=== PATIENT | female | born 1955 | race Caucasian/White ===

== ENCOUNTER 2017-07-24 03:19 | Observation (INO) ==
[2017-07-24] MEDS ORDERED: *HR* HYDROmorphone (PF) 1 MG/ML SYRINGE IVP PRN ×3 (05:29→09:18)
[2017-07-24] MEDS ORDERED: *HR* Promethazine 25 MG/ML VIAL IM PRN (05:32)
[2017-07-24] MEDS ORDERED: 0.9 % Sodium Chloride 1,000 ML IVC SCH ×2 (05:45→09:18)
--- NOTE | 2017-07-24 06:17 | Urology History & Physical ---
Date of Encounter: 07/24/17 Time of Encounter: 06:15 Assessment and Plan (1) Ureteral stone with hydronephrosis Current Visit: Yes Status: Acute I discussed multiple options with the patient including trial of passage if we can get her pain controlled versus ureteroscopic stone extraction. Patient states she "can't take it anymore "and wishes to proceed with stone extraction. We'll proceed with ureteroscopic stone extraction this morning. We discussed the procedure including potential risks of injury to her urinary tract, stricture, perforation, infection, reaction to dye, inability to extract stone, stent complications. Patient voiced an understanding had no further questions. I do not suspect infection based on urinalysis. White cell count was slightly elevated but this may be reactive. (2) Acute renal insufficiency Current Visit: Yes Status: Acute Should improve with IV fluids and stone extraction History of Present Illness Chief complaint: flank pain HPI: Ms. Calloway is a 61 year old female transferred from [facility] secondary to a 3 mm ureterovesical junction stone on left side. Patient states she's had multiple days of significant pain and nausea vomiting. States she just "couldn' t take it anymore "pain was not adequately controlled in the hospital and she was found to have acute renal insufficiency with a creatinine of 1.5. Transferred to facility with urology coverage. Patient describes no fever. Family history of kidney stones but no personal history of kidney stones. Past Med Surg Social Fam HX - Past Medical History Medical history: GERD, hyperlipidemia Psychiatric history: anxiety, bipolar - Past Surgical History Surgical History: cholecystectomy, hysterectomy, orthopedic, other, splenectomy - Social History Smoking Status: Former smoker Smokeless Tobacco Status: No Alcohol use: none Drug use: none - Family History Mother Living Status: Still Living Hx Family Cancer: Yes (Kidney) Father Living Status: Hx Family Cardiac Disorders: Yes (stroke) Medications and Allergies Cholecalciferol (Vitamin D3) [Vitamin D3] 5,000 unit PO DAILY 07/24/17 [History] Diclofenac Sodium [Voltaren] 50 mg PO BID 07/24/17 [History] DiphenhydraMINE [Benadryl] 25 mg PO HS 07/24/17 [History] Folic Acid 1 mg PO DAILY 07/24/17 [History] Levothyroxine [Synthroid] 75 mcg PO 0630 07/24/17 [History] Methocarbamol [Robaxin-750] 750 mg PO BID PRN 07/24/17 [History] Metoprolol [Lopressor] 12.5 mg PO BID 07/24/17 [History] Ranitidine HCl [Zantac] 300 mg PO DAILY 07/24/17 [History] Vortioxetine Hydrobromide [Trintellix] 10.5 mg PO DAILY 07/24/17 [History] clonazePAM [Klonopin] 0.5 mg PO BID 07/24/17 [History] 3 Allergy/AdvReac Type Severity Reaction Status Date / Time adalimumab Allergy Mild Hives Unverified 07/24/17 05:28 aripiprazole Allergy Hives Verified 07/24/17 05:28 etanercept Allergy Swelling Verified 07/24/17 05:28 of Lip/Tongue/Throat morphine Allergy Hives Verified 07/24/17 05:28 Penicillins Allergy Hives Verified 07/24/17 05:28 sulfamethoxazole Allergy Hives Verified 07/24/17 05:28 trimethoprim Allergy Hives Verified 07/24/17 05:28 Review of Systems - Constitutional no fever(s) - EENT Nose, mouth and throat: no dizziness - Cardiovascular no chest pain - Respiratory no cough - Gastrointestinal abdominal pain, nausea, vomiting - Genitourinary Genitourinary: flank pain - Musculoskeletal back pain - Integumentary no erythema - Neurological no confusion - Psychiatric no anxiety - Hematologic/Lymphatic no easy bleeding - Allergic/Immunologic no throat swelling Exam Initial Vital Signs Temp Pulse Resp BP Pulse Ox 97.7 F 77 15 128/87 96 07/24/17 04:59 07/24/17 04:59 07/24/17 04:59 07/24/17 04:59 07/24/17 04:59 - General physical appearance Present: no distress, moderate pain - Eyes Present: PERRL - ENT Present: normal nares - Neck Present: no masses, trachea midline, no lymphadenopathy - Respiratory Present: normal respiratory effort - Abdomen Abdomen: Present: soft, bowel sounds, suprapubic tenderness. Absent: masses - Integumentary Present: no rash - Neurologic Present: normal coordination. Absent: disoriented, confused - Additional Findings Mild left CVA tenderness Urology Results - Labs All other labs normal.
[2017-07-24] MEDS: Levofloxacin 500 MG/100 ML 500 MG/100 ML BAG IVPB ONE ×2 (06:44→07:57)
[2017-07-24] MEDS ORDERED: Ringers Solution, Lactated 1,000 ML ONE (07:33)
--- NOTE | 2017-07-24 07:35 | Anesthesia Evaluation PreOp ---
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: Other (Anxiety, Bipolar) Other Medical History: Thyroid (Hypothyroid), GERD, Other (RA, Obese) Anesthesia History: Past Anesthesia (GB, PAULA, RCR, Splenectomy) : No Alcohol Use: none Drug use: none Medications and Allergies Cholecalciferol (Vitamin D3) [Vitamin D3] 5,000 unit PO DAILY 07/24/17 [History] Diclofenac Sodium [Voltaren] 50 mg PO BID 07/24/17 [History] DiphenhydraMINE [Benadryl] 25 mg PO HS 07/24/17 [History] Folic Acid 1 mg PO DAILY 07/24/17 [History] Levothyroxine [Synthroid] 75 mcg PO 0630 07/24/17 [History] Methocarbamol [Robaxin-750] 750 mg PO BID PRN 07/24/17 [History] Metoprolol [Lopressor] 12.5 mg PO BID 07/24/17 [History] Ranitidine HCl [Zantac] 300 mg PO DAILY 07/24/17 [History] Vortioxetine Hydrobromide [Trintellix] 10.5 mg PO DAILY 07/24/17 [History] clonazePAM [Klonopin] 0.5 mg PO BID 07/24/17 [History] 3 Allergy/AdvReac Type Severity Reaction Status Date / Time adalimumab Allergy Mild Hives Verified 07/24/17 06:55 aripiprazole Allergy Hives Verified 07/24/17 05:28 etanercept Allergy Swelling Verified 07/24/17 05:28 of Lip/Tongue/Throat morphine Allergy Hives Verified 07/24/17 05:28 Penicillins Allergy Hives Verified 07/24/17 05:28 sulfamethoxazole Allergy Hives Verified 07/24/17 05:28 trimethoprim Allergy Hives Verified 07/24/17 05:28 - Meds/Allergy Pre-op Review Medications Reviewed: Yes Allergies Reviewed: Yes If Beta Blockers taken, Date/Time (Last Dose taken): 2100 07/23/2017 Anesthesia Results - Labs Laboratory Tests 06/06/14 10/01/14 10/01/14 13:50 10:55 10:55 WBC 14.5 H Hgb 13.6 Hct 42.8 INR 1.0 Sodium 139 Potassium 4.3 Chloride 111 H Carbon Dioxide 23 BUN 13 Creatinine 0.88 Anesthesia Exam O2 Sat Height 1.55 m Weight 85.003 kg O2 Sat by Pulse Oximetry 96 Vital Signs Temp Pulse Resp BP Pulse Ox 97.7 F 77 15 128/87 96 07/24/17 04:59 07/24/17 04:59 07/24/17 04:59 07/24/17 04:59 07/24/17 04:59 V - HEENT Pupil (Motor): Pupils equal, EOMI Mallampati: III Teeth: Normal Oral Opening: Greater than 3 - BEEF PLUCK TRIMMER LOC: Oriented BEEF PLUCK TRIMMER Motor: Normal RUE, Normal LUE, Normal RLE, Normal LLE, Normal Face BEEF PLUCK TRIMMER Sensory: Normal: RUE, LUE, RLE, LLE, Face - Cardiac Rhythm: Regular Murmur: None JVD: No Carotid Bruit: No - Pulmonary Breath Sounds: bilateral Clear Respiratory Effort: Symmetrical Anesthesia Assess/Plan ASA Score: 3 Modified [place] Scale for Level of Consciousness: Cooperative, oriented, and tranquil Anesthetic Plan: General Autologous Blood: Yes Monitoring Plan: Standard Monitors Recovery Plan: PACU
[2017-07-24] MEDS ORDERED: *HR* Midazolam HCl 2 MG/2 ML VIAL ONE (07:53)
[2017-07-24] MEDS ORDERED: *HR* FentaNYL (PF) 100 MCG/2 ML VIAL ONE (07:53)
[2017-07-24] MEDS ORDERED: *HR* Propofol 200 MG/20 ML VIAL IVP ONE (07:53)
[2017-07-24] MEDS ORDERED: Ondansetron 4 MG/2 ML VIAL ONE (07:55)
[2017-07-24] MEDS ORDERED: Dexamethasone 4 MG/ML VIAL ONE (07:55)
[2017-07-24] MEDS ORDERED: *HR* Succinylcholine 200 MG/10 ML VIAL IVP ONE (07:55)
[2017-07-24] MEDS ORDERED: Lidocaine -MPF 2% 2 ML VIAL ONE (07:55)
--- NOTE | 2017-07-24 08:02 | Operative Note ---
Date of procedure: 07/24/17 Pre-op diagnosis: left distal ureteral stone Post-op diagnosis: same Procedure: left ureteroscopic stone extraction left retrograde pyelogram left JJ stent Anesthesia: GETA Surgeon: Leo Jha Was there an clinical trial assistant present: No Estimated blood loss (cc): 0 Specimen: stone Condition: stable Disposition: PACU Procedure in Detail: PROCEDURE IN DETAIL: Patient was taken back to the operating room, positioned supine on the operating table. Anesthesia was applied without complication. They were moved into dorsal lithotomy. Careful attention was maintained to cushion all pressure points for patient's safety. They were prepped and draped in sterile fashion. Time-out was performed with the proper patient and procedure. A 21-Italian rigid cystoscope was inserted into the bladder without difficulty. Systematic examination of bladder revealed no abnormalities. The left ureteral orifice was cannulated using a 5-Italian ureteral Catheter and a retrograde pyelogram was performed using Isovue. A filling defect was identified which corresponded to the stone. hydrureter was also see. At that point, a zip wire was placed through the 5-Italian and confirmed in the renal pelvis with fluoroscopy. An 8-10 dilator was then placed over the zip wire to passively dilate the ureteral orifice. A semi-rigid ureteroscope was carefully inserted into the bladder and guided into the ureteral oriface. At that point, the stone was encountered and I did not feel that it required fragmentation for safe extraction. stone was basketed out with a 1.9 tipless basket. All stone in the ureter was removed. A 4.8 x 26 ureteral stent was placed over the zip wire under fluoroscopy without complication. The bladder was drained. stone was sent for stone analysis. The string was left attached to the stent and secured to the patient for easy removal in approximately 72 hours
[2017-07-24] MEDS ORDERED: *HR* Metoprolol 5 MG/5 ML VIAL IVP PRN (08:04)
[2017-07-24] MEDS ORDERED: Ondansetron 4 MG/2 ML VIAL IVP ONE (08:04)
[2017-07-24] MEDS ORDERED: *HR* Promethazine 25 MG/ML VIAL IVP PRN (08:04)
[2017-07-24] MEDS ORDERED: Albuterol 2.5 MG/3 ML NEBULIZER IH ONE (08:04)
--- NOTE | 2017-07-24 08:09 | Discharge Summary ---
Outpatient Proc Discharge Plan - Plan Home Medications: Cholecalciferol (Vitamin D3) [Vitamin D3] 5,000 unit PO DAILY 07/24/17 [History] Diclofenac Sodium [Voltaren] 50 mg PO BID 07/24/17 [History] DiphenhydraMINE [Benadryl] 25 mg PO HS 07/24/17 [History] Folic Acid 1 mg PO DAILY 07/24/17 [History] Levothyroxine [Synthroid] 75 mcg PO 0630 07/24/17 [History] Methocarbamol [Robaxin-750] 750 mg PO BID PRN 07/24/17 [History] Metoprolol [Lopressor] 12.5 mg PO BID 07/24/17 [History] Ranitidine HCl [Zantac] 300 mg PO DAILY 07/24/17 [History] Vortioxetine Hydrobromide [Trintellix] 10.5 mg PO DAILY 07/24/17 [History] clonazePAM [Klonopin] 0.5 mg PO BID 07/24/17 [History]
--- NOTE | 2017-07-24 08:12 | Discharge Summary ---
Date of Encounter: 07/24/17 Time of Encounter: 08:47 - Discharge Diagnosis (1) Ureteral stone with hydronephrosis Priority: Primary Status: Resolved (2) Acute renal insufficiency Priority: Secondary Status: Acute - Discharge Medications Prescriptions: Oxycodone HCl/Acetaminophen [Percocet 5-325 mg Tablet] 1 each PO Q6H PRN #15 tablet PRN Reason: Pain Phenazopyridine [Pyridium] 100 mg PO TID PRN #15 tablet PRN Reason: burning with urination Home Medications: Cholecalciferol (Vitamin D3) [Vitamin D3] 5,000 unit PO DAILY 07/24/17 [History] Diclofenac Sodium [Voltaren] 50 mg PO BID 07/24/17 [History] DiphenhydraMINE [Benadryl] 25 mg PO HS 07/24/17 [History] Folic Acid 1 mg PO DAILY 07/24/17 [History] Levothyroxine [Synthroid] 75 mcg PO 0630 07/24/17 [History] Methocarbamol [Robaxin-750] 750 mg PO BID PRN 07/24/17 [History] Metoprolol [Lopressor] 12.5 mg PO BID 07/24/17 [History] Oxycodone HCl/Acetaminophen [Percocet 5-325 mg Tablet] 1 each PO Q6H PRN #15 tablet 07/24/17 [Rx] Phenazopyridine [Pyridium] 100 mg PO TID PRN #15 tablet 07/24/17 [Rx] Ranitidine HCl [Zantac] 300 mg PO DAILY 07/24/17 [History] Vortioxetine Hydrobromide [Trintellix] 10.5 mg PO DAILY 07/24/17 [History] clonazePAM [Klonopin] 0.5 mg PO BID 07/24/17 [History] Allergies/Adverse Reactions: 3 Allergy/AdvReac Type Severity Reaction Status Date / Time adalimumab Allergy Mild Hives Verified 07/24/17 06:55 aripiprazole Allergy Hives Verified 07/24/17 05:28 etanercept Allergy Swelling Verified 07/24/17 05:28 of Lip/Tongue/Throat morphine Allergy Hives Verified 07/24/17 05:28 Penicillins Allergy Hives Verified 07/24/17 05:28 sulfamethoxazole Allergy Hives Verified 07/24/17 05:28 trimethoprim Allergy Hives Verified 07/24/17 05:28 Date of admission: 07/24/17 04:36 Primary care physician: PCP NONE Consults: 07/24/17 05:54 Consult to Nutrition [CONS] Routine Comment: Consulting Provider: NUTRITION Reason for Dietary Consult: MST Score 07/24/17 06:13 Consult to Nutrition [CONS] Routine Comment: Consulting Provider: NUTRITION Reason for Dietary Consult: MST Score Discharging clinician: Leo Jha Anticipated date of discharge: 07/24/17 - Patient Status Disposition: Home, Self-Care Condition: Good Functional capacity at discharge: independent ambulation Overall status at discharge: patient is progressing back to baseline - Discharge Instructions Follow Up With: NONE,PCP [Primary Care Provider] - Leo Jha MD [Partnered Physician] - (see instructions) Additional Instructions: expect stent discomfort including urgency, frequency, burning, blood in the urine. call if symptoms are severe or fever >101 OK to remove stent at home on Tuesday by pulling on the string. if unable to remove stent at home, please some to the urology office tuesday for removal it is normal to have increased flank pain for 24 hours after the stent is removed. avoid NSAIDS is possible stay hydrated. if stent is removed at home follow in 2-4 weeks. - Diet and Activity Activity: other Diet: advance to your usual diet - Hospital Course Hospital course: Ms. Calloway is a 61 year old female transferred to [place] for management of a distal ureteral stone. successful stone extraction. plan for discharge when pain is controlled - Time Spent with Patient Total time spent providing and/or coordinating discharge services: Less than 30 minutes Exam Initial Vital Signs Temp Pulse Resp BP Pulse Ox 97.7 F 77 15 128/87 96 07/24/17 04:59 07/24/17 04:59 07/24/17 04:59 07/24/17 04:59 07/24/17 04:59 - General physical appearance Present: well developed, no distress
[2017-07-24] MEDS ORDERED: EPHEDrine 50 MG/ML VIAL ONE (08:16)
[2017-07-24] MEDS ORDERED: Famotidine 20 MG TABLET PO SCH (09:18)
[2017-07-24] MEDS ORDERED: *HR* OxyCODONE/APAP 5/325 TABLET PO PRN (09:18)
[2017-07-24] MEDS ORDERED: clonazePAM 0.5 MG TABLET PO SCH (09:18)
[2017-07-24] MEDS ORDERED: *HR* Belladonna Alkaloids/Opium 30 MG RECTAL SUPPOSITORY RC PRN (09:18)
[2017-07-24] MEDS ORDERED: Methocarbamol 750 MG TABLET PO PRN (09:18)
[2017-07-24] MEDS ORDERED: Folic Acid 1 MG TABLET PO SCH (09:18)
[2017-07-24] MEDS ORDERED: *HR* Promethazine 25 MG/ML VIAL IV PRN (09:18)
[2017-07-24 12:28] VITALS: BP 110/72
== END 2017-07-24 12:41 | disposition home or self-care (01) ==
LOC: 3ANU
PROVIDERS: ADMIT Urology; ATTEND Urology

== ENCOUNTER 2018-04-03 01:36 | Observation (INO) ==
[2018-04-03] MEDS ORDERED: Ketorolac 15 MG/ML VIAL IVP ONE (02:08)
[2018-04-03] MEDS ORDERED: Ondansetron ODT 4 MG TAB.RAPDIS SL ONE (02:08)
[2018-04-03] MEDS ORDERED: *HR* FentaNYL (PF) 100 MCG/2 ML VIAL IVP ONE (02:08)
[2018-04-03] MEDS ORDERED: Ondansetron 4 MG/2 ML VIAL IVP ONE (02:08)
--- NOTE | 2018-04-03 02:11 | Emergency Department Note ---
Disposition Clinical Impression: Left flank pain, Ureteral stone with hydronephrosis Disposition: Admitted As Inpatient Condition: Good Time of Disposition: 06:12 Abdominal Pain HPI - General Chief Complaint: ED Urogenital-Female Stated Complaint: Kidney Stones Time Seen by Provider: 04/03/18 01:41 Source: patient Nursing Notes Reviewed: Yes Vital Signs Reviewed: Yes - History of Present Illness HPI Narrative: 62-year-old female with known history of previous kidney stones presents with left flank pain. She describes it radiating to her left lower quadrant. Symptoms started since Tuesday. Accompanied with nausea and vomiting. She also mentions she had a fever 101 at home. She did take 2 of these prior to arrival states have not helped. She mentions that she has seen blood in her urine. She mentioned she saw Dr. Jha last month. She feels that her symptoms are similar to her previous attacks for kidney stones. She mentioned she is also had a few episodes of diarrhea the past 2 days. She denies any chest pain, shortness of breath, bloody stools. Pain Scale: 10 - Related Data Home Medications Medication Instructions Recorded Confirmed Cholecalciferol (Vitamin D3) 5,000 unit PO DAILY 07/24/17 07/24/17 [Vitamin D3] Diclofenac Sodium [Voltaren] 50 mg PO BID 07/24/17 07/24/17 DiphenhydraMINE [Benadryl] 25 mg PO HS 07/24/17 07/24/17 Folic Acid 1 mg PO DAILY 07/24/17 07/24/17 Levothyroxine [Synthroid] 75 mcg PO 0630 07/24/17 07/24/17 Methocarbamol [Robaxin-750] 750 mg PO BID PRN 07/24/17 07/24/17 Metoprolol [Lopressor] 12.5 mg PO BID 07/24/17 07/24/17 Ranitidine HCl [Zantac] 300 mg PO DAILY 07/24/17 07/24/17 Vortioxetine Hydrobromide 10.5 mg PO DAILY 07/24/17 07/24/17 [Trintellix] clonazePAM [Klonopin] 0.5 mg PO BID 07/24/17 07/24/17 Previous Rx's Medication Instructions Recorded Oxycodone HCl/Acetaminophen 1 each PO Q6H PRN #15 tablet 12/31/17 [Percocet 5-325 mg Tablet] Phenazopyridine [Pyridium] 100 mg PO TID PRN #15 tablet 07/24/17 Allergies Allergy/AdvReac Type Severity Reaction Status Date / Time adalimumab Allergy Mild Hives Verified 07/24/17 06:55 aripiprazole Allergy Hives Verified 07/24/17 05:28 etanercept Allergy Swelling Verified 07/24/17 05:28 of Lip/Tongue/Throat morphine Allergy Hives Verified 07/24/17 05:28 Penicillins Allergy Hives Verified 07/24/17 05:28 sulfamethoxazole Allergy Hives Verified 07/24/17 05:28 trimethoprim Allergy Hives Verified 07/24/17 05:28 All systems ED: reviewed and negative except as stated. Review of Systems: As Per HPI Constitutional: Reports: fever. Denies: chills Eyes: Denies: vision change ENT ED: Denies: throat pain Cardiovascular: Denies: chest pain, palpitations Respiratory: Denies: dyspnea Gastrointestinal: Reports: as per HPI, abdominal pain, nausea, vomiting, diarrhea Genitourinary: Reports: hematuria. Denies: dysuria, frequency, discharge, abnormal menses Musculoskeletal: Reports: as per HPI Integumentary: Denies: rash Neurological: Denies: headache Endocrine: Denies: fatigue Hematological/Lymphatic: Denies: easy bleeding Allergic/Immunologic: Denies: facial swelling Abdominal Pain PMH - Past Medical History Medical history: Reports: arthritis, GERD, hyperlipidemia, kidney stones, liver disease Female Surgical History: Reports: cholecystectomy, hysterectomy, orthopedic, other, Tonsillectomy Psychiatric history: Reports: anxiety, bipolar - Social History Smoking status: Former smoker Alcohol use: Reports: none Drug use: Reports: none Physical Exam - General Limitations: no limitations General appearance: alert, in no apparent distress - Head Head exam: normocephalic - Eye Eye exam: Present: EOMI - ENT ENT exam: normal oropharynx, mucous membranes moist - Neck Neck exam: Present: full ROM - Chest Chest inspection: Present: symmetric chest wall rise - Respiratory Respiratory exam: Present: normal lung sounds bilaterally, respiratory distress - Cardiovascular Cardiovascular exam: Present: regular rate - Abdominal Exam Abdominal exam: Present: soft, tenderness Abdominal tenderness: Present: LLQ - Extremities Exam Extremities exam: Present: normal inspection, full ROM, normal capillary refill - Back Exam Back exam: Present: full ROM - Neurological Exam Neurological exam: Present: alert - Psychiatric Psychiatric exam: Present: normal affect, normal mood - Skin Skin exam: Present: warm, dry, intact, normal color. Absent: rash, cyanosis, diaphoresis Course Course Narrative: 62-year-old female with known history of previous kidney stones presents with left flank pain. She describes it radiating to her left lower quadrant. Symptoms started since Max. Accompanied with nausea and vomiting. She also mentions she had a fever 101 at home. She did take 2 of these prior to arrival states have not helped. She mentions that she has seen blood in her urine. She mentioned she saw Dr. Jha last month. She feels that her symptoms are similar to her previous attacks for kidney stones. She mentioned she is also had a few episodes of diarrhea the past 2 days. She denies any chest pain, shortness of breath, bloody stools. Considering pyelonephritis, renal colic, diverticulitis. Analgesics workup initiated. - Reevaluation(s) Reevaluation #1: obstructing 6 x 4 mm calculus in the distal left ureter just proximal to the UVJ with moderate hydronephrosis; no concern for diverticulitis. WBC elevated 16 urinalysis shows no evidence urinary tract infection. Vitals remain stable. Patient feels analgesics are not working at this point. She has had previous episodes, with stent placement approximately one year ago. We will contact hospitalist for admission and attempt to control patient's pain. Time: 04:24 Reevaluation #2: Pt discussed with and accepted by Dr. Pang. I'll plan urology page and consult order. Time: 05:21 - Consultations Consultation #1: Patient was discussed with on-call urologist Dr. Jha, who agreed to see patient. Time: 06:11 Vital Signs Temperature 98.2 F 04/03/18 01:39 Pulse Rate 89 04/03/18 01:39 Respiratory Rate 18 04/03/18 01:39 Blood Pressure 160/122 04/03/18 01:39 O2 Sat by Pulse Oximetry 97 04/03/18 01:39 Temperature 98.2 F 04/03/18 01:39 Pulse Rate 83 04/03/18 05:41 Respiratory Rate 18 04/03/18 05:41 Blood Pressure 106/66 04/03/18 05:41 O2 Sat by Pulse Oximetry 99 04/03/18 05:41 Oxygen Delivery Oxygen Delivery Room Air Abdominal Pain - MDM Narrative Medical decision making narrative: Abdomen/Pelvis CT 04/03/18 02:49 IMPRESSION: Moderate left hydroureteronephrosis as result of an obstructing 6 x 4 mm calculus in the distal left ureter just proximal to the UVJ. Additional left nephrolithiasis. D/ / Khris Holt MD / Khris Holt MD Interpreting Provider: Khris Holt MD - Lab Data Lab results reviewed: Yes I reviewed the patient's lab results. Result diagrams: 04/03/18 02:21 04/03/18 02:21 Lab Results 04/03/18 04/03/18 04/03/18 Range/Units 02:03 02:21 02:21 WBC 16.7 H (4.3-11.1) K/mcL RBC 4.64 (3.82-4.97) M/mcL Hgb 14.5 (11.5-15.4) g/dL Hct 43.9 (35.3-44.9) % MCV 94.6 (83.0-100.0) fL MCH 31.3 (28.0-33.3) pg MCHC 33.0 (31.6-35.5) g/dL RDW 14.6 H (11.5-14.5) % Plt Count 359 (140-400) K/mcL MPV 11.7 (9.4-12.4) fL Immature Gran % 0.3 (0-4) % Seg Neutrophils % 75.6 % Lymphocytes % 13.2 % Monocytes % 9.6 % Eosinophils % 0.8 % Basophils % 0.5 % Neutrophils # 12.6 H (1.6-8.9) K/mcL Lymphocytes # 2.2 (0.6-4.6) K/mcL Monocytes # 1.6 H (0.0-1.3) K/mcL Eosinophils # 0.1 (0.0-0.6) K/mcL Basophils # 0.1 (0.0-0.2) K/mcL Sodium 140 (136-145) mEq/L Potassium 4.2 (3.5-5.1) mEq/L Chloride 106 (98-107) mEq/L Carbon Dioxide 27 (23-29) mEq/L BUN 15 (8-23) mg/dL Creatinine 1.24 H (0.60-1.20) mg/dL Est GFR ( Amer) 53 L (> 60) Est GFR (Non-Af Amer) 44 L (> 60) BUN/Creatinine Ratio 12 (6-26) Glucose 130 H (70-105) mg/dL Calculated Osmolality 293 (280-300) Calcium 10.8 H (8.6-10.3) mg/dL Urine Color Dark Yellow (Yellow) Urine Clarity Cloudy A (Clear) Urine pH 6.0 (5.0-8.0) pH Units Ur Specific [place] 1.018 (1.010-1.025) Urine Protein 30 H (Neg-Trace) mg/dL Urine Glucose (UA) Normal (Normal) mg/dL Urine Ketones Trace H (Negative) mg/dL Urine Blood Large H (Negative) Urine Nitrite Negative (Negative) Urine Bilirubin Negative (Negative) Urine Urobilinogen Normal (Normal) mg/dL Ur Leukocyte Esterase Small H (Negative) Urine Microscopic RBC 30-50 H (0-3) per hpf Urine Microscopic WBC 5-15 H (0-3) per hpf Ur Squamous Epith Cells Many H (None-Few) per lpf Calcium Oxalate Crystal Present Urine Bacteria None Seen (None-Few) per hpf Hyaline Casts None Seen (None-Few) per lpf Ur Culture Indicated? NO. A (NO) - Radiology Data Radiology results reviewed: Yes I reviewed the patient's radiology results. Attestation Statement - Attestation Attestation: For this encounter, I have reviewed the ECONOMIC HISTORIAN or PA documentation, treatment plan, and medical decision making; and I have had face to face time with this patient. Findings consistent with obstructive uropathy. We will admit for urology consultation further management. Patient is having significant pain and will be requiring admission for pain control.
[2018-04-03 02:14] LABS: Bilirubin,Urine Negative (Negative); Blood,Urine Large (Negative); Clarity,Urine Cloudy (Clear); Color,Urine Dark Yellow (Yellow); Glucose,Urine (UA) Normal (Normal); Ketones,Urine Trace mg/dL (Negative); Leukocyte Esterase,Urine Small (Negative); Nitrite,Urine Negative (Negative); Protein,Urine 30 mg/dL (Neg-Trace); Specific Gravity,Urine 1.018 (1.010-1.025); Urobilinogen,Urine Normal (Normal)
[2018-04-03 02:17] LABS: Bacteria,Urine None Seen per hpf (None-Few); Hyaline Casts,Urine None Seen per lpf (None-Few); Squamous Epithelial Cell,Urine Many per lpf (None-Few)
[2018-04-03 02:26] LABS: Calcium Oxalate Crystals,Urine Present; RBC,Urine 30-50 per hpf (0-3)
[2018-04-03 02:30] LABS: Basophils # 0.1 K/mcL (0.0-0.2); Basophils % 0.5 %; Eosinophils # 0.1 K/mcL (0.0-0.6); Eosinophils % 0.8 %; Hematocrit 43.9 % (35.3-44.9); Hemoglobin 14.5 g/dL (11.5-15.4); Immature Granulocytes % 0.3 % (0-4); Lymphocytes # 2.2 K/mcL (0.6-4.6); Lymphocytes % 13.2 %; Mean Corpuscular Hemoglobin 31.3 pg (28.0-33.3); Mean Corpuscular Volume 94.6 fL (83.0-100.0); Mean Platelet Volume 11.7 fL (9.4-12.4); Monocytes # 1.6 K/mcL (0.0-1.3); Monocytes % 9.6 %; Neutrophils # 12.6 K/mcL (1.6-8.9); Platelet Count 359 K/mcL (140-400); Red Blood Count 4.64 M/mcL (3.82-4.97); Red Cell Distribution Width 14.6 % (11.5-14.5); Segmented Neutrophils % 75.6 %
[2018-04-03 02:55] LABS: Calcium 10.8 mg/dL (8.6-10.3); Potassium 4.2 mEq/L (3.5-5.1)
[2018-04-03] MEDS ORDERED: OXYCODONE Oral CONC 10 MG/0.5 ML ORAL.SYG SL ONE (04:16)
[2018-04-03] MEDS ORDERED: Hyoscyamine 0.5 MG/ML MLS IVP ONE (04:59)
[2018-04-03] MEDS ORDERED: 0.9 % Sodium Chloride 1,000 ML IVC ONE (05:05)
[2018-04-03] MEDS ORDERED: Naloxone 0.4 MG/ML INJ IVP PRN ×2 (08:00→11:05)
[2018-04-03] MEDS ORDERED: Ondansetron 4 MG/2 ML VIAL IVP PRN ×2 (08:02→11:05)
[2018-04-03] MEDS ORDERED: OXYCODONE Oral CONC 10 MG/0.5 ML ORAL.SYG SL PRN (08:03)
[2018-04-03] MEDS ORDERED: 0.9 % Sodium Chloride 1,000 ML IVC SCH (08:15)
--- NOTE | 2018-04-03 08:34 | Anesthesia Evaluation PreOp ---
Date of Encounter: 04/03/18 Time of Encounter: 08:56 - Past History Planned Operation: LEFT USE Cardiac History: Hyperlipidemia Pulmonary History: Former smoker [employer] History: Other (ANXIETY, BIPOLAR) Other Medical History: Renal (ARF, ?CRF, RECURRENT RENAL STONES, OBSTRUCTING URETERIC STONE WITH SEPSIS), GERD, Other (ARTHRITIS) Anesthesia History: No Prior Anesthetic Complications, Past Anesthesia ( cholecystectomy, hysterectomy, orthopedic, Tonsillectomy) Alcohol Use: none Drug use: none Medications and Allergies Cholecalciferol (Vitamin D3) [Vitamin D3] 5,000 unit PO DAILY 07/24/17 [History] Diclofenac Sodium [Voltaren] 50 mg PO BID 07/24/17 [History] DiphenhydraMINE [Benadryl] 25 mg PO HS 07/24/17 [History] Folic Acid 1 mg PO DAILY 07/24/17 [History] Levothyroxine [Synthroid] 75 mcg PO 0630 07/24/17 [History] Methocarbamol [Robaxin-750] 750 mg PO BID PRN 07/24/17 [History] Metoprolol [Lopressor] 12.5 mg PO BID 07/24/17 [History] Oxycodone HCl/Acetaminophen [Percocet 5-325 mg Tablet] 1 each PO Q6H PRN #15 tablet 07/24/17 [Rx] Phenazopyridine [Pyridium] 100 mg PO TID PRN #15 tablet 07/24/17 [Rx] Ranitidine HCl [Zantac] 300 mg PO DAILY 07/24/17 [History] Vortioxetine Hydrobromide [Trintellix] 10.5 mg PO DAILY 07/24/17 [History] clonazePAM [Klonopin] 0.5 mg PO BID 07/24/17 [History] 3 Allergy/AdvReac Type Severity Reaction Status Date / Time adalimumab Allergy Mild Hives Verified 07/24/17 06:55 aripiprazole Allergy Hives Verified 07/24/17 05:28 etanercept Allergy Swelling Verified 07/24/17 05:28 of Lip/Tongue/Throat morphine Allergy Hives Verified 07/24/17 05:28 Penicillins Allergy Hives Verified 07/24/17 05:28 sulfamethoxazole Allergy Hives Verified 07/24/17 05:28 trimethoprim Allergy Hives Verified 07/24/17 05:28 - Meds/Allergy Pre-op Review Medications Reviewed: Yes Allergies Reviewed: Yes Beta Blockers on Current Med List: Yes If Beta Blockers taken, Date/Time (Last Dose taken): 2200, BUT VOMITED Anesthesia Results - Labs 04/03/18 02:21 04/03/18 02:21 Anesthesia Exam Vital Signs/O2 Sat, Most Current Temp Pulse Resp BP Pulse Ox 98.0 F 99 16 135/83 93 04/03/18 06:41 04/03/18 06:41 04/03/18 06:41 04/03/18 06:41 04/03/18 06:41 HEIGHT 1.57 m WEIGHT 88 kg BMI 36 NPO (# of Hours): 8 - HEENT Mallampati: III Teeth: Normal (LOOSE #11) Oral Opening: Greater than 3 - Cardiac Rhythm: Regular - Pulmonary Breath Sounds: bilateral Clear Respiratory Effort: Symmetrical - Additional Findings Active Medications Sodium Chloride (0.9 % Sodium Chloride) 1,000 mls @ 100 mls/hr IVC .Q10H RAUL Stop: 10/03/18 08:16 Naloxone HCl (Narcan) 0.4 mg IVP Q2MIN PRN PRN Reason: SEE COMMENTS Stop: 10/03/18 08:01 Ondansetron HCl (Zofran) 4 mg IVP Q6HR PRN; Protocol PRN Reason: Nausea And Vomiting Stop: 10/03/18 08:03 Oxycodone HCl (Oxycodone Oral Conc) 10 mg SL Q6HR PRN; Protocol PRN Reason: Severe Pain Stop: 10/03/18 08:04 Anesthesia Assess/Plan ASA Score: 3, E Modified Bethel Scale for Level of Consciousness: Cooperative, oriented, and tranquil Anesthetic Plan: General Monitoring Plan: Standard Monitors Recovery Plan: PACU Anes Supervising Prov Stmt: [employer] MED LIST NOT UPDATED THIS VISIT PATIENT'S CHART AND CURRENT MEDICATIONS REVIEWED
[2018-04-03] MEDS ORDERED: *HR* Propofol 200 MG/20 ML VIAL IVP ONE (08:44)
[2018-04-03] MEDS ORDERED: *HR* FentaNYL (PF) 100 MCG/2 ML VIAL ONE (08:44)
[2018-04-03] MEDS ORDERED: Dexamethasone 4 MG/ML VIAL ONE (08:44)
[2018-04-03] MEDS ORDERED: *HR* Midazolam HCl 2 MG/2 ML VIAL ONE (08:44)
[2018-04-03] MEDS ORDERED: Lidocaine -MPF 2% 2 ML VIAL ONE (08:44)
[2018-04-03] MEDS ORDERED: Ondansetron 4 MG/2 ML VIAL ONE (08:44)
[2018-04-03] MEDS ORDERED: Isovue-300 50 ML VIAL IVP ONE (08:45)
[2018-04-03] MEDS ORDERED: *HR* FentaNYL (PF) 100 MCG/2 ML VIAL IVP PRN (08:50)
[2018-04-03] MEDS ORDERED: *HR* OxyCODONE Immed Rel 5 MG TABLET PO PRN (08:50)
--- NOTE | 2018-04-03 08:52 | Internal Med History&Physical ---
Date of Encounter: 04/03/18 Time of Encounter: 08:47 Internal Medicine - H&P: HPI Chief complaint: L flank pain Admitted From: Home Plans for Post Hospital Care: Home History of present illness: Ms. Calloway is a 62 year old female with PMH of HTN and renal stone who presented with 3 days hx of L flank pain accompanied by hematuria, diarrhea and nausea and vomiting. She also complained of fever and chills, said to have been as high as 101 at home. She reports diarrhea has now resolved but flank pain persists. She had a similar experience in 06/2017 with stone extraction done Urology has been consulted by ER team. ROS is not contributory Work up also showed BRANDON She is full code Past Med Surg Social Fam HX - Past Medical History Medical history: arthritis, cancer, GERD, hyperlipidemia, kidney stones, liver disease, other Additional medical history: [place] of hearing Psychiatric history: anxiety - Past Surgical History Surgical History: cholecystectomy, hysterectomy, splenectomy, thyroidectomy Additional surgical history: Spleenectomy, thyroidectomy - Social History Smoking Status: Former smoker Smokeless Tobacco Status: No Alcohol use: none Drug use: none - Family History Mother Living Status: Still Living Hx Family Cancer: Yes (Kidney) Hx Family GI Disorders: Yes (colon problems) Hx Family Genitourinary Disorders: Yes (cancer) Hx Family Psychosocial Disorders: Yes (anxiety) Father Living Status: Age at : 67 Hx Family Cardiac Disorders: Yes (stroke) Hx Family Musculoskeletal Disorders: Yes Hx Family Psychosocial Disorders: Yes (anxiety) Sister Living Status: Still Living Hx Family Psychosocial Disorders: Yes (schizo , depression) Internal Medicine - H&P: Meds Cholecalciferol (Vitamin D3) [Vitamin D3] 5,000 unit PO DAILY 07/24/17 [History] Diclofenac Sodium [Voltaren] 50 mg PO BID 07/24/17 [History] DiphenhydraMINE [Benadryl] 25 mg PO HS 07/24/17 [History] Folic Acid 1 mg PO DAILY 07/24/17 [History] Levothyroxine [Synthroid] 75 mcg PO 0630 07/24/17 [History] Methocarbamol [Robaxin-750] 750 mg PO BID PRN 07/24/17 [History] Metoprolol [Lopressor] 12.5 mg PO BID 07/24/17 [History] Oxycodone HCl/Acetaminophen [Percocet 5-325 mg Tablet] 1 each PO Q6H PRN #15 tablet 07/24/17 [Rx] Phenazopyridine [Pyridium] 100 mg PO TID PRN #15 tablet 07/24/17 [Rx] Ranitidine HCl [Zantac] 300 mg PO DAILY 07/24/17 [History] Vortioxetine Hydrobromide [Trintellix] 10.5 mg PO DAILY 07/24/17 [History] clonazePAM [Klonopin] 0.5 mg PO BID 07/24/17 [History] 3 Allergy/AdvReac Type Severity Reaction Status Date / Time adalimumab Allergy Mild Hives Verified 07/24/17 06:55 aripiprazole Allergy Hives Verified 07/24/17 05:28 etanercept Allergy Swelling Verified 07/24/17 05:28 of Lip/Tongue/Throat morphine Allergy Hives Verified 07/24/17 05:28 Penicillins Allergy Hives Verified 07/24/17 05:28 sulfamethoxazole Allergy Hives Verified 07/24/17 05:28 trimethoprim Allergy Hives Verified 07/24/17 05:28 All Systems PM: A 10-system review of systems was performed and is negative for pertinent findings except as documented above in the HPI. - Constitutional Constitutional: no chills, no fever(s), no night sweats - EENT Eyes: no change in vision, no discharge, no pain, no photophobia Ears: no ear discharge, no ear pain, no tinnitus Nose, mouth and throat: no dysphagia, no nasal discharge, no neck pain, no sore throat - Cardiovascular Cardiovascular ROS IM: no chest pain, no diaphoresis, no dyspnea, no lightheadedness, no palpitations, no syncope - Respiratory Respiratory: no cough, no dyspnea, no wheezing, no excessive phlegm production - Gastrointestinal Gastrointestinal: no abdominal pain, no diarrhea, no hematemesis, no hematochezia, no melena, no nausea, no vomiting - Genitourinary Genitourinary: as per HPI, change in urinary stream, flank pain, no dysuria, no hematuria - Musculoskeletal Musculoskeletal ROS IM: no numbness, no tingling - Integumentary Integumentary IM: no rash, no unusual bruising - Neurological Neurological ROS: no confusion, no convulsions, no focal weakness, no numbness, no tingling, no tremor(s) - Hematologic/Lymphatic Hematologic/Lymphatic: no easy bruising - Constitutional Vitals: Temp Pulse Resp BP Pulse Ox 98.0 F 99 16 135/83 93 04/03/18 06:41 04/03/18 06:41 04/03/18 06:41 04/03/18 06:41 04/03/18 06:41 General appearance: Present: A&O X 3, pleasant, obese Exam: see exam details below - Head Head exam: Present: atraumatic, normocephalic - Eye Eye exam: Present: PERRL, conjuntiva pink, sclera anicteric Pupils: Present: PERRL - Neck Neck exam general surgery: Present: supple, trachea midline. Absent: lymphadenopathy - Respiratory Respiratory exam: Present: CTAB. Absent: accessory muscle use, rales, rhonchi, wheezes - Cardiovascular Cardiovascular exam: Present: RRR, +S1, +S2. Absent: diastolic murmur, gallop, rubs, systolic murmur - GI/Abdominal GI/Abdominal exam: Present: normal bowel sounds, soft, no peritoneal signs. Absent: distended, tenderness - Extremities Exam Extremities exam: Present: warm, radial pulses palpable and symmetrical. Absent : calf tenderness, cyanotic, pedal edema - Neurological Exam Neurological exam: Present: CN II-XII intact, oriented X3, no focal deficits. Absent: pronater drift, facial droop, speech deficit - Skin Skin exam: Present: dry, intact Internal Med - H&P Results - Labs CBC & Chem 7: 04/03/18 02:21 04/03/18 02:21 - Assessment and plan (1) Ureteral stone with hydronephrosis Current Visit: Yes Status: Acute Assessment and plan: Urology has been consulted for intervention Continue analgesia, IVF and antiemetics (2) Acute renal insufficiency Current Visit: Yes Status: Acute Assessment and plan: IVF hydration, rpt Chem a.m (3) UTI (urinary tract infection) Current Visit: Yes Status: Suspected Assessment and plan: Send urine culture and start on ceftriaxone 1g daily, de-escalate with negative cultures, patient reported a hx of fever at home and has a dirty urine as well as leukocytosis Qualifiers: Urinary tract infection type: acute cystitis Hematuria presence: with hematuria Qualified Code(s): N30.01 - Acute cystitis with hematuria - Time Spent With Patient Total time spent is greater than 50% in coordination of care (as documented) at patient's floor/unit and/or counseling patient:
[2018-04-03] MEDS ORDERED: Ringers Solution, Lactated 1,000 ML IVC SCH (09:00)
[2018-04-03] MEDS ORDERED: Levofloxacin 750 MG/150 ML 750 MG/150 ML BAG IVPB SCH (09:00)
--- NOTE | 2018-04-03 09:00 | Urology - Consult Note ---
Date of Encounter: 04/03/18 Time of Encounter: 08:59 - Assessment and Plan (1) Ureteral stone with hydronephrosis Current Visit: Yes Status: Acute Assessment and plan: Patient was taken to the operating room today for left ureteroscopic stone extraction. Informed consent obtained and placed in the chart. Urology CN:HPI Consult date: 04/03/18 Reason for consult Urology: Hydronephrosis Requesting physician: David Crowe History of present illness: Margarita is a 62-year-old female who presented to emergency Department yesterday secondary to severe left-sided flank pain. She was found to have a 4-5 mm distal left ureteral stone with some proximal hydronephrosis. Patient was brought in for observation. Patient also with a slightly elevated WBC count. Positive fevers at home without fever since arriving to the hospital. Past Med Surg Social Fam HX - Past Medical History Medical history: arthritis, cancer, GERD, hyperlipidemia, kidney stones, liver disease, other Additional medical history: [place] of hearing Psychiatric history: anxiety - Past Surgical History Surgical History: cholecystectomy, hysterectomy, splenectomy, thyroidectomy Additional surgical history: Spleenectomy, thyroidectomy - Social History Smoking Status: Former smoker Smokeless Tobacco Status: No Alcohol use: none Drug use: none - Family History Mother Living Status: Still Living Hx Family Cancer: Yes (Kidney) Hx Family GI Disorders: Yes (colon problems) Hx Family Genitourinary Disorders: Yes (cancer) Hx Family Psychosocial Disorders: Yes (anxiety) Father Living Status: Age at : 67 Hx Family Cardiac Disorders: Yes (stroke) Hx Family Musculoskeletal Disorders: Yes Hx Family Psychosocial Disorders: Yes (anxiety) Sister Living Status: Still Living Hx Family Psychosocial Disorders: Yes (schizo , depression) Medications and Allergies Cholecalciferol (Vitamin D3) [Vitamin D3] 5,000 unit PO DAILY 07/24/17 [History] Diclofenac Sodium [Voltaren] 50 mg PO BID 07/24/17 [History] DiphenhydraMINE [Benadryl] 25 mg PO HS 07/24/17 [History] Folic Acid 1 mg PO DAILY 07/24/17 [History] Levothyroxine [Synthroid] 75 mcg PO 0630 07/24/17 [History] Methocarbamol [Robaxin-750] 750 mg PO BID PRN 07/24/17 [History] Metoprolol [Lopressor] 12.5 mg PO BID 07/24/17 [History] Oxycodone HCl/Acetaminophen [Percocet 5-325 mg Tablet] 1 each PO Q6H PRN #15 tablet 07/24/17 [Rx] Phenazopyridine [Pyridium] 100 mg PO TID PRN #15 tablet 07/24/17 [Rx] Ranitidine HCl [Zantac] 300 mg PO DAILY 07/24/17 [History] Vortioxetine Hydrobromide [Trintellix] 10.5 mg PO DAILY 07/24/17 [History] clonazePAM [Klonopin] 0.5 mg PO BID 07/24/17 [History] 3 Allergy/AdvReac Type Severity Reaction Status Date / Time adalimumab Allergy Mild Hives Verified 07/24/17 06:55 aripiprazole Allergy Hives Verified 07/24/17 05:28 etanercept Allergy Swelling Verified 07/24/17 05:28 of Lip/Tongue/Throat morphine Allergy Hives Verified 07/24/17 05:28 Penicillins Allergy Hives Verified 07/24/17 05:28 sulfamethoxazole Allergy Hives Verified 07/24/17 05:28 trimethoprim Allergy Hives Verified 07/24/17 05:28 Review of Systems - Constitutional no chills, no fever(s) - EENT Nose, mouth and throat: no dizziness - Cardiovascular no chest pain - Respiratory no cough Exam Initial Vital Signs Temp Pulse Resp BP Pulse Ox 98.2 F 89 18 160/122 97 04/03/18 01:39 04/03/18 01:39 04/03/18 01:39 04/03/18 01:39 04/03/18 01:39 - General physical appearance Present: well developed, well nourished - Eyes Present: PERRL - Cardiovascular Cardiovascular exam IM: RRR Urology Results - Labs 04/03/18 02:21 04/03/18 02:21 Abnormal lab results WBC 16.7 K/mcL (4.3-11.1) H 04/03/18 02:21 RDW 14.6 % (11.5-14.5) H 04/03/18 02:21 Neutrophils # 12.6 K/mcL (1.6-8.9) H 04/03/18 02:21 Monocytes # 1.6 K/mcL (0.0-1.3) H 04/03/18 02:21 Creatinine 1.24 mg/dL (0.60-1.20) H 04/03/18 02:21 Est GFR ( Amer) 53 (> 60) L 04/03/18 02:21 Est GFR (Non-Af Amer) 44 (> 60) L 04/03/18 02:21 Glucose 130 mg/dL (70-105) H 04/03/18 02:21 Calcium 10.8 mg/dL (8.6-10.3) H 04/03/18 02:21 Urine Clarity Cloudy (Clear) A 04/03/18 02:03 Urine Protein 30 mg/dL (Neg-Trace) H 04/03/18 02:03 Urine Ketones Trace mg/dL (Negative) H 04/03/18 02:03 Urine Blood Large (Negative) H 04/03/18 02:03 Ur Leukocyte Esterase Small (Negative) H 04/03/18 02:03 Urine Microscopic RBC 30-50 per hpf (0-3) H 04/03/18 02:03 Urine Microscopic WBC 5-15 per hpf (0-3) H 04/03/18 02:03 Ur Squamous Epith Cells Many per lpf (None-Few) H 04/03/18 02:03 Ur Culture Indicated? NO. (NO) A 04/03/18 02:03 All other labs normal. Consult Discharge Plan - Plan Referrals: Tali Smart, SALES CORRESPONDENT [Primary Care Provider] -
[2018-04-03] MEDS ORDERED: Clindamycin 900 MG/50 ML 900 MG/50 ML IV.SOLN IVPB ONE (09:11)
--- NOTE | 2018-04-03 09:39 | Operative Note ---
Date of procedure: 04/03/18 Pre-op diagnosis: left distal ureteral stone Post-op diagnosis: same Procedure: Left ureteroscopic stone extraction with laser, left ureteroscopic basket retrieval stone fragment, left 4.8 x 26 cm ureteral stent placement Anesthesia: GETA Surgeon: Matthias Martin Was there an school psychologist assistant present: No Estimated blood loss (cc): 0 Specimen: left ureteral stone Condition: stable Disposition: PACU Procedure in Detail: Patient was prepped and draped in normal sterile fashion. Timeout procedure performed. I then inserted the semirigid ureteroscope into the patient's bladder. There is a marked amount of debris within the patient's bladder. I then removed the scope and drained the bladder using the cystoscope. The semirigid ureteroscope was then placed back in the patient's bladder and I was easily able to cannulate the left ureteral orifice. I encountered the 4-5 mm distal ureteral stone. I then was able to use the holmium laser fragment the stone. Upon fragmentation of the stone there was some debris that was seen coming from the left proximal ureter. I then used a basket device to remove all stone fragments and debris from the distal left ureter. I then placed a Glidewire into the left kidney and placed a 4.8 x 26 cm stent with good curl seen in the left kidney and in the bladder. A string was left for easy removal in 2-3 days. Given patient's leukocytosis recommend for the patient to stay in hospital until urine culture returns.
--- NOTE | 2018-04-03 10:39 | Anesthesia Evaluation Post Op ---
Date of Encounter: 04/03/18 Time of Encounter: 10:15 - Vital Signs Vital Signs: Vital Signs/O2 Sat/Glucose, Most Recent Temp Pulse Resp BP Pulse Ox 97.8 F 64 16 100/63 100 04/03/18 10:10 04/03/18 10:10 04/03/18 10:10 04/03/18 10:10 04/03/18 10:10 - Lungs Lungs: Clear Ascult./Percussion - Airway Airway: Non-obstructed - Cardiovascular Regular Rate - Mental Status Mental Status: Alert & Oriented, Answers Appropriately - Pain Pain Scale used: Griselda (Faces) - Nausea Vomiting Nausea Vomiting: Not Present - Hydration Hydration: Tolerates oral liquids - Discharge PostOp Status: Transfer Patient to floor
[2018-04-03] MEDS: 0.9 % Sodium Chloride 1,000 ML IVC SCH ×2 (10:45→20:44)
[2018-04-03] MEDS: OXYCODONE Oral CONC 10 MG/0.5 ML ORAL.SYG SL PRN (20:43)
[2018-04-03] MEDS ORDERED: Famotidine 20 MG TABLET PO SCH (21:30)
[2018-04-03] MEDS: Famotidine 20 MG TABLET PO SCH (23:06)
[2018-04-04] MEDS: 0.9 % Sodium Chloride 1,000 ML IVC SCH ×2 (06:34→16:41)
[2018-04-04 07:09] LABS: Basophils % 0.1 %; Hematocrit 37.7 % (35.3-44.9); Immature Granulocytes % 0.4 % (0-4); Lymphocytes # 1.4 K/mcL (0.6-4.6); Lymphocytes % 12.4 %; Mean Corpuscular HGB Conc 32.1 g/dL (31.6-35.5); Mean Corpuscular Hemoglobin 31.3 pg (28.0-33.3); Mean Corpuscular Volume 97.4 fL (83.0-100.0); Mean Platelet Volume 12.2 fL (9.4-12.4); Monocytes # 0.9 K/mcL (0.0-1.3); Monocytes % 7.9 %; Neutrophils # 9.1 K/mcL (1.6-8.9); Platelet Count 314 K/mcL (140-400); Red Blood Count 3.87 M/mcL (3.82-4.97); Red Cell Distribution Width 14.7 % (11.5-14.5); Segmented Neutrophils % 79.2 %
[2018-04-04 07:27] LABS: BUN/Creatinine Ratio 14 (6-26); Blood Urea Nitrogen 13 mg/dL (8-23); Calcium 9.7 mg/dL (8.6-10.3); Carbon Dioxide 22 mEq/L (23-29); Chloride 109 mEq/L (98-107); Glucose 151 mg/dL (70-105); Osmolality,Calculated 289 (280-300); Potassium 4.4 mEq/L (3.5-5.1); Sodium 138 mEq/L (136-145); eGFR For Non-African Americans > 60 (> 60)
[2018-04-04 07:42] LABS: Hemoglobin 12.1 g/dL (11.5-15.4)
[2018-04-04] MEDS: Famotidine 20 MG TABLET PO SCH (10:01)
[2018-04-04] MEDS: OXYCODONE Oral CONC 10 MG/0.5 ML ORAL.SYG SL PRN (10:02)
--- NOTE | 2018-04-04 10:53 | Urology Progress Note ---
Date of Encounter: 04/04/18 Time of Encounter: 10:30 - Assessment and Plan (1) Ureteral stone with hydronephrosis Current Visit: Yes Status: Acute Assessment and plan: Patient is a 62 year old female who is one day status post ureteroscopic stone extraction and ureteral stent placement. Reviewed postoperative instructions and follow up. Patient will follow up in 4 weeks to review stone analysis. Progress Note Subjective: still having pain, pain is less Narrative: POD#1. Patient seen and examined sitting upright in bed in no apparent distress. Patient reports pain is moderately controlled at present. Patient is voiding without difficulty. Tolerating normal diet. Ambulating without assistance. Patient's vital signs are stable and reassuring. Objective Initial Vital Signs Temp Pulse Resp BP Pulse Ox 98.2 F 89 18 160/122 97 04/03/18 01:39 04/03/18 01:39 04/03/18 01:39 04/03/18 01:39 04/03/18 01:39 - General physical appearance Present: well developed, well nourished, no distress - Respiratory Present: normal expansion, normal respiratory effort - Abdomen Present: soft, tender (bilateral lower quadrants ) - Integumentary Present: no rash, no abnormal pigmentation - Musculoskeletal Present: normal posture - Psychiatric Present: oriented to time, oriented to person, oriented to place, speech is normal, memory intact - Labs 04/04/18 06:06 04/04/18 06:06 Diabetes panel 04/04/18 Range/Units 06:06 Sodium 138 (136-145) mEq/L Potassium 4.4 (3.5-5.1) mEq/L Chloride 109 H (98-107) mEq/L Carbon Dioxide 22 L (23-29) mEq/L BUN 13 (8-23) mg/dL Creatinine 0.93 (0.60-1.20) mg/dL Glucose 151 H (70-105) mg/dL Calcium 9.7 (8.6-10.3) mg/dL Calcium panel 04/04/18 Range/Units 06:06 Calcium 9.7 (8.6-10.3) mg/dL Pituitary panel 04/04/18 Range/Units 06:06 Sodium 138 (136-145) mEq/L Potassium 4.4 (3.5-5.1) mEq/L Chloride 109 H (98-107) mEq/L Carbon Dioxide 22 L (23-29) mEq/L BUN 13 (8-23) mg/dL Creatinine 0.93 (0.60-1.20) mg/dL Glucose 151 H (70-105) mg/dL Calcium 9.7 (8.6-10.3) mg/dL Adrenal panel 04/04/18 Range/Units 06:06 Sodium 138 (136-145) mEq/L Potassium 4.4 (3.5-5.1) mEq/L Chloride 109 H (98-107) mEq/L Carbon Dioxide 22 L (23-29) mEq/L BUN 13 (8-23) mg/dL Creatinine 0.93 (0.60-1.20) mg/dL Glucose 151 H (70-105) mg/dL Calcium 9.7 (8.6-10.3) mg/dL Consult Discharge Plan - Plan Referrals: Tali Smart, SIDE SEAM ENVELOPE MACHINE OPERATOR [Primary Care Provider] -
[2018-04-04] MEDS ORDERED: Methocarbamol 750 MG TABLET PO PRN (11:02)
--- NOTE | 2018-04-04 11:45 | Internal Med Progress Note ---
Hospitalist Progress Note - Encounter Date of Encounter: 04/04/18 Time of Encounter: 11:43 - Subjective Interval History: Ms. Calloway is a 62 year old female with PMH of HTN and renal stone who presented with 3 days hx of L flank pain accompanied by hematuria, diarrhea and nausea and vomiting. She also complained of fever and chills, said to have been as high as 101 at home. She reports diarrhea has now resolved but flank pain persists. She had a similar experience in 06/2017 with stone extraction done Urology has been consulted by ER team. Work up also showed BRANDON She is full code - Exam Vitals: Temp Pulse Resp BP Pulse Ox 97.8 F 61 16 118/72 96 04/04/18 10:58 04/04/18 10:58 04/04/18 10:58 04/04/18 10:58 04/04/18 10:58 Exam: General appearance: Present: A&O X 3, pleasant, obese Exam: see exam details below - Head Head exam: Present: atraumatic, normocephalic - Eye Eye exam: Present: PERRL, conjuntiva pink, sclera anicteric Pupils: Present: PERRL - Neck Neck exam general surgery: Present: supple, trachea midline. Absent: lymphadenopathy - Respiratory Respiratory exam: Present: CTAB. Absent: accessory muscle use, rales, rhonchi, wheezes - Cardiovascular Cardiovascular exam: Present: RRR, +S1, +S2. Absent: diastolic murmur, gallop, rubs, systolic murmur - GI/Abdominal GI/Abdominal exam: Present: normal bowel sounds, soft, no peritoneal signs. Not distended but positive left flank tenderness persists - Extremities Exam Extremities exam: Present: warm, radial pulses palpable and symmetrical. Absent : calf tenderness, cyanotic, pedal edema - Neurological Exam Neurological exam: Present: CN II-XII intact, oriented X3, no focal deficits. Absent: pronater drift, facial droop, speech deficit - Skin Skin exam: Present: dry, intact - Assessment and Plan (1) Ureteral stone with hydronephrosis Current Visit: Yes Status: Acute Assessment and Plan: Seen by urology and s/p stent placement day #0. Per urology PA pt ok to be discharged from their stand point. (2) Acute renal insufficiency Current Visit: Yes Status: Acute Assessment and Plan: BRANDON resolved. Cr down from 1.24 to 0.93. Pt states she has been voiding ok. Will recheck renal function in am. (3) Left flank pain Current Visit: Yes Status: Acute Assessment and Plan: s/p stent placement. Continue with PO PRN pain control. Awaiting repeat UA and cultures. (4) Acute cystitis Current Visit: Yes Status: Acute Assessment and Plan: Urine culture ordered but not yet sent. Will re-order UA and resume antibiotic. WBC down from 16.5 to 11.5. Will recheck CBC in am. (5) Constipation Current Visit: Yes Status: Acute Assessment and Plan: Ordered Colace 100 mg BID and Miralax as well. - Time Spent with Patient Total time spent is greater than 50% in coordination of care (as documented) at patient's floor/unit and/or counseling patient: Internal Medicine: Result - Labs CBC & Chem 7: 04/04/18 06:06 04/04/18 06:06 Labs: Short CBC 04/04/18 Range/Units 06:06 WBC 11.5 H (4.3-11.1) K/mcL Hgb 12.1 D (11.5-15.4) g/dL Hct 37.7 (35.3-44.9) % Plt Count 314 (140-400) K/mcL Neutrophils # 9.1 H (1.6-8.9) K/mcL BMP 04/04/18 06:06 Sodium 138 Potassium 4.4 Chloride 109 H Carbon Dioxide 22 L BUN 13 Creatinine 0.93 Glucose 151 H Calcium 9.7 Consult Discharge Plan - Plan Referrals: Tali Smart, GARAGE MANAGER [Primary Care Provider] - (4) Acute cystitis Qualifiers: Hematuria presence: with hematuria Qualified Code(s): N30.01 - Acute cystitis with hematuria
[2018-04-04 13:44] LABS: Bilirubin,Urine Moderate (Negative); Blood,Urine Large (Negative); Clarity,Urine Turbid (Clear); Color,Urine Red (Yellow); Glucose,Urine (UA) Normal (Normal); Ketones,Urine 15 mg/dL (Negative); Leukocyte Esterase,Urine Large (Negative); Nitrite,Urine Positive (Negative); PH,Urine 5.5 pH Units (5.0-8.0); Protein,Urine 100 mg/dL (Neg-Trace); Urobilinogen,Urine Normal (Normal)
[2018-04-04 13:46] LABS: Bacteria,Urine None Seen per hpf (None-Few); Hyaline Casts,Urine None Seen per lpf (None-Few); Squamous Epithelial Cell,Urine Many per lpf (None-Few); WBC,Urine 30-50 per hpf (0-3)
[2018-04-04 13:58] LABS: RBC,Urine 15-30 per hpf (0-3)
[2018-04-04 13:59] LABS: Yeast,Urine Few per hpf (None Seen)
[2018-04-04] MEDS ORDERED: Melatonin 3 MG TABLET PO PRN (16:44)
[2018-04-04] MEDS: clonazePAM 0.5 MG TABLET PO PRN (21:26)
[2018-04-05] MEDS: 0.9 % Sodium Chloride 1,000 ML IVC SCH ×2 (04:51→15:12)
[2018-04-05] MEDS ORDERED: Levofloxacin 750 MG/150 ML 750 MG/150 ML BAG IVPB SCH (09:00)
[2018-04-05] MEDS ORDERED: Patient Taking Own Medication 1 EACH PO SCH (09:00)
[2018-04-05] MEDS ORDERED: Famotidine 20 MG TABLET PO SCH (09:00)
[2018-04-05 10:19] LABS: Calculi Mass 8 mg
[2018-04-05] MEDS: Famotidine 20 MG TABLET PO SCH (11:04)
[2018-04-05] MEDS: Folic Acid 1 MG TABLET PO SCH (11:05)
[2018-04-05] MEDS: Cholecalciferol (D-3) 1,000 UNIT TABLET PO SCH (11:05)
[2018-04-05 12:52] LABS: Basophils # 0.1 K/mcL (0.0-0.2); Basophils % 0.9 %; Eosinophils # 0.3 K/mcL (0.0-0.6); Eosinophils % 2.8 %; Hematocrit 38.8 % (35.3-44.9); Hemoglobin 12.7 g/dL (11.5-15.4); Immature Granulocytes % 0.3 % (0-4); Lymphocytes # 2.8 K/mcL (0.6-4.6); Lymphocytes % 27.5 %; Mean Corpuscular HGB Conc 32.7 g/dL (31.6-35.5); Mean Corpuscular Hemoglobin 31.8 pg (28.0-33.3); Mean Corpuscular Volume 97.2 fL (83.0-100.0); Mean Platelet Volume 12.3 fL (9.4-12.4); Monocytes # 1.1 K/mcL (0.0-1.3); Monocytes % 10.6 %; Neutrophils # 5.9 K/mcL (1.6-8.9); Platelet Count 303 K/mcL (140-400); Red Blood Count 3.99 M/mcL (3.82-4.97); Segmented Neutrophils % 57.9 %
--- NOTE | 2018-04-05 12:53 | Internal Med Progress Note ---
Hospitalist Progress Note - Encounter Date of Encounter: 04/05/18 Time of Encounter: 12:35 - Subjective Interval History: Ms. Calloway is a 62 year old female with PMH of HTN and renal stone who presented with 3 days hx of L flank pain accompanied by hematuria, diarrhea and nausea and vomiting. She also complained of fever and chills, said to have been as high as 101 at home. She reports diarrhea has now resolved but flank pain persists. She had a similar experience in 06/2017 with stone extraction done Urology has been consulted by ER team. Work up also showed BRANDON She is full code - Exam Vitals: Temp Pulse Resp BP Pulse Ox 97.9 F 65 17 112/71 95 04/05/18 11:50 04/05/18 11:50 04/05/18 11:50 04/05/18 11:50 04/05/18 11:50 Exam: General appearance: Present: A&O X 3, pleasant, obese Exam: see exam details below - Head Head exam: Present: atraumatic, normocephalic - Eye Eye exam: Present: PERRL, conjuntiva pink, sclera anicteric Pupils: Present: PERRL - Neck Neck exam general surgery: Present: supple, trachea midline. Absent: lymphadenopathy - Respiratory Respiratory exam: Present: CTAB. Absent: accessory muscle use, rales, rhonchi, wheezes - Cardiovascular Cardiovascular exam: Present: RRR, +S1, +S2. Absent: diastolic murmur, gallop, rubs, systolic murmur - GI/Abdominal GI/Abdominal exam: Present: normal bowel sounds, soft, no peritoneal signs. Not distended but positive left flank tenderness persists - Extremities Exam Extremities exam: Present: warm, radial pulses palpable and symmetrical. Absent : calf tenderness, cyanotic, pedal edema - Neurological Exam Neurological exam: Present: CN II-XII intact, oriented X3, no focal deficits. Absent: pronater drift, facial droop, speech deficit - Skin Skin exam: Present: dry, intact - Assessment and Plan (1) Ureteral stone with hydronephrosis Current Visit: Yes Status: Acute Assessment and Plan: Seen by urology and s/p stent placement day #1. Per urology PA pt ok to be discharged from their stand point. (2) Acute renal insufficiency Current Visit: Yes Status: Acute Assessment and Plan: BRANDON resolved. Cr down from 1.24 to 0.93. Pt states she has been voiding ok. (3) Left flank pain Current Visit: Yes Status: Acute Assessment and Plan: s/p stent placement. Continue with PO PRN pain control. UA positive for infection. Sending urine for sensitivity and cultures. Started on Levaqin by urology. (4) Acute cystitis Current Visit: Yes Status: Acute Assessment and Plan: UA positive for infection. Sending urine for sensitivity and cultures. Started on Levaqin by urology. Pt reporting itching around IV infusion of levaquin. Will DC Levaquin, start Rocephin, and give benadryl for itching. (5) Constipation Current Visit: Yes Status: Acute DVT Prophylaxis: Ordered Colace 100 mg BID and Miralax as well. - Summary of Assessment and Plan Summary of Assessment and Plan: Pt states Left flank pain has "eased up today." She denies fever, chills, had nausea yesterday but no vomiting. Denies diarrhea but reports constipation. States her last BM was about 3 days ago. - Time Spent with Patient Total time spent is greater than 50% in coordination of care (as documented) at patient's floor/unit and/or counseling patient: Internal Medicine: Result - Labs CBC & Chem 7: 04/04/18 06:06 04/04/18 06:06 Labs: Urine 04/04/18 Range/Units 13:30 Urine Color Red A (Yellow) Urine Clarity Turbid A (Clear) Urine pH 5.5 (5.0-8.0) pH Units Ur Specific [place] 1.010 (1.010-1.025) Urine Protein 100 H (Neg-Trace) mg/dL Urine Glucose (UA) Normal (Normal) mg/dL Consult Discharge Plan - Plan Referrals: Tali Smart, [employer] [Primary Care Provider] - (4) Acute cystitis Qualifiers: Hematuria presence: with hematuria Qualified Code(s): N30.01 - Acute cystitis with hematuria
[2018-04-05 13:46] LABS: Albumin 3.8 g/dL (3.5-5.7); BUN/Creatinine Ratio 13 (6-26); Blood Urea Nitrogen 11 mg/dL (8-23); Calcium 9.6 mg/dL (8.6-10.3); Carbon Dioxide 25 mEq/L (23-29); Chloride 110 mEq/L (98-107); Glucose 101 mg/dL (70-105); Osmolality,Calculated 294 (280-300); Phosphorous 2.8 mg/dL (2.7-4.5); Potassium 3.7 mEq/L (3.5-5.1); Sodium 142 mEq/L (136-145); eGFR For Non-African Americans > 60 (> 60)
[2018-04-05] MEDS: cefTRIAXone 1,000 MG in Water for inj. (sterile) 20 ML 10 ML IVP SCH (15:12)
[2018-04-05] MEDS: clonazePAM 0.5 MG TABLET PO PRN (22:02)
[2018-04-06] MEDS: OXYCODONE Oral CONC 10 MG/0.5 ML ORAL.SYG SL PRN (00:57)
[2018-04-06] MEDS: 0.9 % Sodium Chloride 1,000 ML IVC SCH ×2 (00:58→09:23)
[2018-04-06 06:14] LABS: Basophils # 0.1 K/mcL (0.0-0.2); Basophils % 0.6 %; Eosinophils # 0.4 K/mcL (0.0-0.6); Eosinophils % 2.5 %; Hematocrit 42.4 % (35.3-44.9); Immature Granulocytes % 0.2 % (0-4); Lymphocytes % 13.8 %; Mean Corpuscular Hemoglobin 31.3 pg (28.0-33.3); Mean Corpuscular Volume 94.6 fL (83.0-100.0); Mean Platelet Volume 13.1 fL (9.4-12.4); Monocytes # 1.8 K/mcL (0.0-1.3); Monocytes % 12.3 %; Platelet Count 303 K/mcL (140-400); Red Blood Count 4.48 M/mcL (3.82-4.97); Red Cell Distribution Width 14.9 % (11.5-14.5); Segmented Neutrophils % 70.6 %
[2018-04-06 06:42] LABS: Albumin 4.2 g/dL (3.5-5.7); BUN/Creatinine Ratio 10 (6-26); Blood Urea Nitrogen 10 mg/dL (8-23); Calcium 10.3 mg/dL (8.6-10.3); Carbon Dioxide 24 mEq/L (23-29); Chloride 109 mEq/L (98-107); Glucose 108 mg/dL (70-105); Osmolality,Calculated 290 (280-300); Phosphorous 3.6 mg/dL (2.7-4.5); Sodium 140 mEq/L (136-145); eGFR For Non-African Americans 57 (> 60)
[2018-04-06] MEDS ORDERED: TRINTELLIX PO SCH (09:00)
[2018-04-06] MEDS: Cholecalciferol (D-3) 1,000 UNIT TABLET PO SCH (09:19)
[2018-04-06] MEDS: Folic Acid 1 MG TABLET PO SCH (09:19)
[2018-04-06] MEDS: Famotidine 20 MG TABLET PO SCH (09:19)
[2018-04-06] MEDS: cefTRIAXone 1,000 MG in Water for inj. (sterile) 20 ML 10 ML IVP SCH (09:20)
[2018-04-06 15:48] VITALS: BP 136/73
--- NOTE | 2018-04-06 17:04 | Discharge Summary ---
- NOTES TO OUTPATIENT PROVIDER Notes to Outpatient Provider: Dr. Martin urologist. Mrs. Calloway is a 62-year- old female with past medical history of hypertension and renal stains she presented through the emergency room with chief complaint of left flank pain hematuria diarrhea nausea and vomiting also was positive for fever and chills with temp of 101 is admitted to the observation uni for moderate left hydro- nephro nephrosclerosis as a result of instructed by 4 mm calculus of the distal left ureter. She was consulted and had obstructing stone removed with stent placment for a residule 2 mm non-obstructing calculous. Urine c/s no growth. Vital signs remained stable during stay with discharge VS Temp 98.8, b/p 136/73 , pulse 65. Patient will be discharged home on home medications, and is to f/u with Dr. Martin in 2-3 weeks. She is continue to strain her urine to obtain second stone if possible. On 04/06/2018 patient went to use bathroom, and stated that her ring caught the stent and completely removed it from the urethra. She denies capo hematuria or abdominal pain or pressure with the accidental removal. Consulted with Dr. Martin and was advised to leave stent out and f/u in office as outpatinet, 2-3 weeks. During hospital course patient tolerated procedure well, w/o adverse problems. WBC remained elevate 14.2 , BUN normal @ 10, creatinin normal at 0.98, and GFR 57. Orders not resulted at time of discharge: Pending orders 04/03/18 09:47 Calculi (stone) Analysis Routine 04/07/18 04:00 Complete Blood Count [HEME] AM 0400 Renal Function Panel AM 0400 04/08/18 04:00 Complete Blood Count [HEME] AM 0400 Renal Function Panel AM 0400 Date of Encounter: 04/06/18 Time of Encounter: 15:00 - Discharge Diagnosis (1) Acute renal insufficiency Priority: Secondary Status: Resolved Assessment and Plan: Acute renal insufficiency has resolved with BUN and creatinine normalizing All Lab Results (24 Hours) 04/06/18 04/06/18 Range/Units 05:20 05:20 WBC 14.2 H (4.3-11.1) K/mcL RBC 4.48 (3.82-4.97) M/mcL Hgb 14.0 (11.5-15.4) g/dL Hct 42.4 (35.3-44.9) % MCV 94.6 (83.0-100.0) fL MCH 31.3 (28.0-33.3) pg MCHC 33.0 (31.6-35.5) g/dL RDW 14.9 H (11.5-14.5) % Plt Count 303 (140-400) K/mcL MPV 13.1 H (9.4-12.4) fL Immature Gran % 0.2 (0-4) % Seg Neutrophils % 70.6 % Lymphocytes % 13.8 % Monocytes % 12.3 % Eosinophils % 2.5 % Basophils % 0.6 % Neutrophils # 10.0 H (1.6-8.9) K/mcL Lymphocytes # 2.0 (0.6-4.6) K/mcL Monocytes # 1.8 H (0.0-1.3) K/mcL Eosinophils # 0.4 (0.0-0.6) K/mcL Basophils # 0.1 (0.0-0.2) K/mcL Sodium 140 (136-145) mEq/L Potassium 4.0 (3.5-5.1) mEq/L Chloride 109 H (98-107) mEq/L Carbon Dioxide 24 (23-29) mEq/L BUN 10 (8-23) mg/dL Creatinine 0.98 (0.60-1.20) mg/dL Est GFR ( Amer) > 60 (> 60) Est GFR (Non-Af Amer) 57 L (> 60) BUN/Creatinine Ratio 10 (6-26) Glucose 108 H (70-105) mg/dL Calculated Osmolality 290 (280-300) Calcium 10.3 (8.6-10.3) mg/dL Phosphorus 3.6 (2.7-4.5) mg/dL Albumin 4.2 (3.5-5.7) g/dL (2) Ureteral stone with hydronephrosis Priority: Primary Status: Acute Assessment and Plan: Patient underwent left ureteroscopic stone extraction with laser completed on and a left ureteroscopic basket retrieval stone fragment approximately 4.8 x 26 cm stent was placed. She tolerated the procedure well. During patient 's stay patient accidentally dislodged the stent having it caught on her right ring and it was completely extracted without any difficulty or adverse effects. Dr. Faulkner was consulted regarding the accidentally removal of the stent placement in the urethra and she wishes that the patient not undergo the procedure again for stent placement and she will follow her in 2-3 weeks in office and agreed the patient may be discharged. Patient has a residual 2 mm cyst that is nonobstructing. We have instructed patient to continue to strain her urine when she is at home and if she is able to collect the same she is to bring that in for analysis as well (3) Acute cystitis Priority: Secondary Status: Acute Assessment and Plan: Urine culture shows no growth Qualifiers: Hematuria presence: with hematuria Qualified Code(s): N30.01 - Acute cystitis with hematuria Hospital course: Ms. Calloway is a 62 year old female whom was admitted through the emergency room for obstructing calculus in the left ureter. During her hospital course she underwent fluoroscopy per Dr. Faulkner urologist. Under floroscopy patient was prepped and draped in normal sterile fashion. Timeout procedure performed. Dr. Martin proceded to insert semirigid ureteroscope into the patient's bladder. There is a marked amount of debris within the patient's bladder. I then removed the scope and drained the bladder using the cystoscope. The semirigid ureteroscope was then placed back in the patient's bladder and I was easily able to cannulate the left ureteral orifice. A 4-5 mm distal ureteral stone was encountered . Use the holmium laser fragment the stone. Upon fragmentation of the stone there was some debris that was seen coming from the left proximal ureter. I then used a basket device to remove all stone fragments and debris from the distal left ureter. I then placed a Glidewire into the left kidney and placed a 4.8 x 26 cm stent with good curl seen in the left kidney and in the bladder. A string was left for easy removal in 2-3 days. During her hospital stay on day 3 she did accidentally dislodged the stent from the urethra and Dr. Faulkner was consulted with orders to not replace the stent and patient may be discharged. Patient's hospital course was otherwise uneventful, and she is ready to go home. Patient will be discharged to her home, in stable, ambulatory condition with f/ u appointment to be scheduled with Dr. Martin, Nephrology. She is to continue with home medications per list, increase fluids, and continue to strain her urine. Discharge discussed with: patient Time spent discussing smoking cessation with patient: 3 to 10 minutes - Time Spent with Patient Total time spent providing and/or coordinating discharge services: Less than 30 minutes - Discharge Medications Home Medications: Cholecalciferol (Vitamin D3) [Vitamin D3] 5,000 unit PO DAILY 07/24/17 [History] Diclofenac Sodium [Voltaren] 50 mg PO BID 07/24/17 [History] Folic Acid 1 mg PO DAILY 07/24/17 [History] Levothyroxine [Synthroid] 75 mcg PO 0630 07/24/17 [History] Metoprolol [Lopressor] 12.5 mg PO BID 07/24/17 [History] Ranitidine HCl [Zantac] 300 mg PO DAILY 07/24/17 [History] Vortioxetine Hydrobromide [Trintellix] 10.5 mg PO DAILY 07/24/17 [History] clonazePAM [Klonopin] 0.5 mg PO HS PRN 07/24/17 [History] Docusate [Colace] 100 mg PO BID capsule 04/06/18 [Rx] Famotidine [Pepcid] 20 mg PO 0800 tablet 04/06/18 [Rx] Melatonin 3 mg PO HS PRN tablet 04/06/18 [Rx] Ondansetron [Zofran] 4 mg IVP Q6HR PRN vial 04/06/18 [Rx] Allergies/Adverse Reactions: 3 Allergy/AdvReac Type Severity Reaction Status Date / Time adalimumab Allergy Mild Hives Verified 07/24/17 06:55 aripiprazole Allergy Hives Verified 07/24/17 05:28 etanercept Allergy Swelling Verified 07/24/17 05:28 of Lip/Tongue/Throat morphine Allergy Hives Verified 07/24/17 05:28 Penicillins Allergy Hives Verified 07/24/17 05:28 sulfamethoxazole Allergy Hives Verified 07/24/17 05:28 trimethoprim Allergy Hives Verified 07/24/17 05:28 Date of admission: 04/03/18 05:52 Primary care physician: Tali Smart CNP Consults: 04/03/18 06:05 Consult to Urology [CONS] Stat Consulting Provider: Urology Rose Reason for Consult: distal ureteral calculus with hydroureteronephrosis Call Completed: Yes Discharging clinician: Gwen Pandya Anticipated date of discharge: 04/06/18 - Constitutional Vitals: Temp Pulse Resp BP Pulse Ox 98.8 F 65 17 136/73 96 04/06/18 15:42 04/06/18 15:42 04/06/18 15:42 04/06/18 15:42 04/06/18 15:42 General appearance: Present: cooperative, A&O X 3, pleasant, obese Exam: General appearance: Present: A&O X 3, pleasant, obese Exam: see exam details below - Head Head exam: Present: atraumatic, normocephalic - Eye Eye exam: Present: PERRL, conjuntiva pink, sclera anicteric Pupils: Present: PERRL - Neck Neck exam general surgery: Present: supple, trachea midline. Absent: lymphadenopathy - Respiratory Respiratory exam: Present: CTAB. Absent: accessory muscle use, rales, rhonchi, wheezes - Cardiovascular Cardiovascular exam: Present: RRR, +S1, +S2. Absent: diastolic murmur, gallop, rubs, systolic murmur - GI/Abdominal GI/Abdominal exam: Present: normal bowel sounds, soft, no peritoneal signs. Not distended but positive left flank tenderness persists - Extremities Exam Extremities exam: Present: warm, radial pulses palpable and symmetrical. Absent : calf tenderness, cyanotic, pedal edema - Neurological Exam Neurological exam: Present: CN II-XII intact, oriented X3, no focal deficits. Absent: pronater drift, facial droop, speech deficit - Skin Skin exam: Present: dry, intact - Head Head exam: Present: atraumatic, normocephalic - Eye Eye exam: Present: PERRL, conjuntiva pink, sclera anicteric Pupils: Present: PERRL - Neck Neck exam general surgery: Present: supple, trachea midline. Absent: lymphadenopathy - Respiratory Respiratory exam: Present: CTAB. Absent: accessory muscle use, rales, rhonchi, wheezes - Cardiovascular Cardiovascular exam: Present: RRR, +S1, +S2. Absent: diastolic murmur, gallop, rubs, systolic murmur - GI/Abdominal GI/Abdominal exam: Present: normal bowel sounds, soft, no peritoneal signs. Absent: distended, tenderness Additional comments: Mild suprapubic tenderness was noted with palp, w/o guarding - Extremities Exam Extremities exam: Present: warm, radial pulses palpable and symmetrical. Absent : calf tenderness, cyanotic, pedal edema - Neurological Exam Neurological exam: Present: CN II-XII intact, oriented X3, no focal deficits. Absent: pronater drift, facial droop, speech deficit - Skin Skin exam: Present: dry, intact - Patient Status Disposition: Home, Self-Care Functional capacity at discharge: independent ambulation Overall status at discharge: patient is back to baseline - Discharge Instructions Follow Up With: Tali Smart CNP [Primary Care Provider] - Matthias Martin MD [Partnered Physician] - - Diet and Activity Activity: resume usual activities as tolerated Diet: regular diet (follow up with Dr. Martin in 2-3 weeks, call for office appointment )
== END 2018-04-06 17:34 | disposition home or self-care (01) ==
LOC: EMEROOARM 01:36 → 3BNU 01:36
PROVIDERS: ADMIT Internal Medicine; ATTEND Family Medicine